=== PATIENT | female | born 1945 | race Two or more races ===

== ENCOUNTER 2019-02-06 08:00 | Inpatient (IN) | payer MEDICARE, MEDICAID ==
[~2019-02-06] VITALS: Ht 160 cm; Wt 94.1 kg
[2019-02-06] MEDS ORDERED: FURO40TA5 PO (08:10)
[2019-02-06] MEDS ORDERED: CARV3.1242 PO (08:10)
[2019-02-06] MEDS ORDERED: LOSA50TA20 PO (08:10)
[2019-02-06] MEDS ORDERED: ESCI10TA54 PO (08:10)
[2019-02-06] MEDS ORDERED: OMEP20CA10 PO (08:10)
[2019-02-06] MEDS ORDERED: GLIP5TAB12 PO (08:10)
[2019-02-06] MEDS ORDERED: SODIUM CHLORIDE 0.9% 1,000 ML IV ONE (08:19)
[2019-02-06] MEDS ORDERED: ONDANSETRON HCL 4MG/2ML INJ IV STA (08:19)
[2019-02-06 08:54] LABS: BASOPHILS % 0.7 % (0.0-2.0); EOSINOPHILS % 2.8 % (0.0-5.0); HEMATOCRIT. 33.7 % (36.0-48.0); HEMOGLOBIN. 9.9 g/dL (12.0-16.0); LYMPHOCYTES % 18.2 % (20.0-50.0); MEAN CORPUSCULAR HEMOGLOBIN 20.2 pg (28.0-32.0); MEAN CORPUSCULAR VOLUME 68.5 fL (81.0-99.0); MEAN PLATELET VOLUME 9.1 fl (7.4-10.4); MONOCYTES % 7.2 % (2.0-8.0); NEUTROPHILS % 71.1 % (40.0-76.0); PLATELET 219 x1000/uL (130-400); RED BLOOD CELL COUNT 4.92 mill/uL (4.2-5.4); RED CELL DISTRIBUTION WIDTH 20.9 % (11.6-14.6)
[2019-02-06 08:57] LABS: CHLORIDE 110 mEq/L (98-107)
[2019-02-06 09:14] LABS: INR 1.2; PROTHROMBIN TIME 12.6 sec (9.6-11.0)
[2019-02-06 09:17] LABS: PLATELET ESTIMATE NORMAL
[2019-02-06 11:36] LABS: CLARITY URINE CLEAR (CLEAR); COLOR URINE DARK YELLOW (YELLOW); KETONES URINE NEGATIVE (NEGATIVE); LEUKOCYTE ESTERASE URINE NEGATIVE (NEGATIVE); NITRITE URINE NEGATIVE (NEGATIVE); OCCULT BLOOD URINE NEGATIVE (NEGATIVE); PROTEIN URINE 1+ (NEGATIVE); SPECIFIC GRAVITY URINE 1.013 (1.005-1.030)
[2019-02-06 11:55] LABS: BG BASE EXCESS -3.4 mmol/L (-2.0-2.0); BG DEOXYHEMOGLOBIN 4.2 % (0.0-5.0); BG FRACTION INSPIRED OXYGEN 28; BG HCO3 ACT 22.5 mmol/L (22.0-26.0); BG METHEMOGLOBIN 0.7 % (0.0-1.5); BG OXYGEN SATURATION 95.7 % (92.0-98.5); BG OXYHEMOGLOBIN 94.1 % (94.0-97.0); BG PCO2 44.4 mmHg (35.0-45.0); BG PH 7.323 (7.350-7.450); BG PO2 93.5 mmHg (75.0-100.0); BG SAMPLE SITE RIGHT RADIAL; BG TOTAL HEMOGLOBIN 10.3 g/dL (12.0-18.0); BG VENT MODE NASAL CANNULA
[2019-02-06] MEDS ORDERED: ENALAPRIL 2.5MG/2ML VIAL 2ML IV ONE (12:00)
[2019-02-06] MEDS ORDERED: FUROSEMIDE 40MG/4ML VIAL IVP ONE (12:00)
[2019-02-06] MEDS ORDERED: ASPIRIN 325MG EC TABLET PO ONE ×2 (13:15→13:45)
[2019-02-06] MEDS ORDERED: ENOXAPARIN 80MG/0.8ML SYR SUBCUT ONE (13:15)
[2019-02-06] MEDS ORDERED: NITROGLYCERIN OINT 1GM/INCH UDPKT TD SCH (14:00)
[2019-02-06] MEDS ORDERED: NITROGLYCERIN OINT 1GM/INCH UDPKT TD NR (14:30)
[2019-02-06] MEDS ORDERED: DIPHENHYDRAMINE 50MG/ML VIAL IV PRN (15:00)
[2019-02-06] MEDS ORDERED: MAGNESIUM/ALUMINUM HYDROXIDE/SIMETHICONE 30ML UDC PO PRN (15:00)
[2019-02-06] MEDS ORDERED: ACETAMINOPHEN 325MG TABLET PO PRN (15:00)
[2019-02-06] MEDS ORDERED: GUAIFENESIN 200MG/10ML SUGAR FREE UDC PO PRN (15:00)
[2019-02-06] MEDS ORDERED: IPRATROPIUM/ALBUTEROL 0.5-3(2.5)MG/3ML NEB INH PRN (15:00)
[2019-02-06] MEDS ORDERED: DOCUSATE SODIUM 100MG CAPSULE PO PRN (15:00)
[2019-02-06] MEDS ORDERED: CLONIDINE 0.1MG TABLET PO PRN (15:00)
[2019-02-06 15:16] LABS: PHOSPHORUS 5.5 mg/dL (2.5-4.9)
[2019-02-06 17:37] VITALS: BP 141/68
[2019-02-06] MEDS ORDERED: MORPHINE SULFATE 4 MG/ML CPJ (NOT FOR IM USE) IV PRN (17:44)
[2019-02-06] MEDS: NITROGLYCERIN OINT 1GM/INCH UDPKT TD SCH (18:44)
[2019-02-06] MEDS ORDERED: DEXTROSE 50% WATER 50ML SYRINGE IV PRN (19:45)
[2019-02-06 20:00] VITALS: BP 129/53
[2019-02-06] MEDS: INSULIN LISPRO 100 UNITS/ML SUBCUT SCH (20:48)
[2019-02-06] MEDS: BLOOD SUGAR DIAGNOSTIC STRIP TEST SCH (20:48)
[2019-02-06] MEDS ORDERED: FUROSEMIDE 40MG/4ML VIAL IVP SCH (21:00)
[2019-02-06] MEDS: ATORVASTATIN CALCIUM 10MG TABLET PO SCH (21:00)
[2019-02-06] MEDS: ONDANSETRON HCL 4MG/2ML INJ IV PRN (21:42)
[2019-02-06 22:00] VITALS: BP 144/70
[2019-02-06] MEDS: FUROSEMIDE 40MG/4ML VIAL IVP SCH (22:07)
[2019-02-07] VITALS (12 sets, daily range): BP systolic 125–152; BP diastolic 55–75
[2019-02-07] MEDS: NITROGLYCERIN OINT 1GM/INCH UDPKT TD SCH ×4 (00:07→17:30)
[2019-02-07] MEDS ORDERED: ENOXAPARIN 80MG/0.8ML SYR SUBCUT SCH (01:00)
[2019-02-07] MEDS: ONDANSETRON HCL 4MG/2ML INJ IV PRN (03:50)
[2019-02-07] MEDS: FUROSEMIDE 40MG/4ML VIAL IVP SCH ×3 (05:34→16:44)
[2019-02-07 06:19] LABS: BASOPHILS % 0.2 % (0.0-2.0); HEMATOCRIT. 30.1 % (36.0-48.0); LYMPHOCYTES % 11.9 % (20.0-50.0); MEAN CORPUSCULAR HEMOGLOBIN 20.3 pg (28.0-32.0); MEAN CORPUSCULAR VOLUME 67.5 fL (81.0-99.0); MONOCYTES % 10.9 % (2.0-8.0); PLATELET 202 x1000/uL (130-400); RED BLOOD CELL COUNT 4.45 mill/uL (4.2-5.4); RED CELL DISTRIBUTION WIDTH 21.4 % (11.6-14.6)
[2019-02-07 06:37] LABS: CHLORIDE 110 mEq/L (98-107)
[2019-02-07 06:49] LABS: LDL CHOLESTEROL 34 mg/dL (5-100)
[2019-02-07 06:50] LABS: CREATINE KINASE 46 IU/L (26-192)
[2019-02-07 06:51] LABS: HDL CHOLESTEROL 39 mg/dL (40-59)
[2019-02-07 06:53] LABS: CREATINE KINASE MB FRACTION 1.5 ng/mL (0.5-3.6)
[2019-02-07] MEDS: INSULIN LISPRO 100 UNITS/ML SUBCUT SCH ×4 (07:20→21:00)
[2019-02-07] MEDS: BLOOD SUGAR DIAGNOSTIC STRIP TEST SCH ×4 (07:49→21:12)
[2019-02-07] MEDS: ASPIRIN 81MG EC TABLET PO SCH (09:47)
[2019-02-07] MEDS: POTASSIUM CHLORIDE 10MEQ TABLET SR PO SCH (09:47)
[2019-02-07] MEDS: LOSARTAN POTASSIUM 25 MG TABLET PO SCH (09:47)
[2019-02-07] MEDS ORDERED: NON FORMULARY PATIENT HOME MED XX SCH (11:00)
[2019-02-07] MEDS ORDERED: CITALOPRAM HYDROBROMIDE 10MG TABLET PO SCH (12:00)
[2019-02-07] MEDS ORDERED: CITALOPRAM HYDROBROMIDE 20MG TABLET PO SCH (12:00)
[2019-02-07] MEDS ORDERED: ENOXAPARIN 100MG/ML SYR SUBCUT NR (14:00)
[2019-02-07] MEDS: ESCITALOPRAM 10MG TABLET PO SCH (14:24)
[2019-02-07] MEDS: CARVEDILOL 6.25 MG TABLET PO SCH (21:36)
[2019-02-07] MEDS: ATORVASTATIN CALCIUM 10MG TABLET PO SCH (21:36)
[2019-02-08] VITALS (12 sets, daily range): BP systolic 111–151; BP diastolic 51–83
[2019-02-08] MEDS: NITROGLYCERIN OINT 1GM/INCH UDPKT TD SCH ×2 (00:25→05:52)
[2019-02-08] MEDS: BLOOD SUGAR DIAGNOSTIC STRIP TEST SCH ×4 (06:45→21:09)
[2019-02-08 07:07] LABS: CHLORIDE 109 mEq/L (98-107)
[2019-02-08 07:08] LABS: BASOPHILS % 0.4 % (0.0-2.0); EOSINOPHILS % 4.2 % (0.0-5.0); HEMATOCRIT. 29.9 % (36.0-48.0); HEMOGLOBIN. 8.8 g/dL (12.0-16.0); LYMPHOCYTES % 20.1 % (20.0-50.0); MEAN CORPUSCULAR HEMOGLOBIN 19.8 pg (28.0-32.0); MEAN CORPUSCULAR VOLUME 67.4 fL (81.0-99.0); MEAN PLATELET VOLUME 8.9 fl (7.4-10.4); MONOCYTES % 12.7 % (2.0-8.0); NEUTROPHILS % 62.6 % (40.0-76.0); PLATELET 194 x1000/uL (130-400); RED BLOOD CELL COUNT 4.43 mill/uL (4.2-5.4); RED CELL DISTRIBUTION WIDTH 20.6 % (11.6-14.6)
[2019-02-08 07:17] LABS: TOTAL IRON BINDING CAPACITY 404 ug/dL (250-450)
[2019-02-08] MEDS: INSULIN LISPRO 100 UNITS/ML SUBCUT SCH ×4 (07:20→21:24)
[2019-02-08] MEDS: LOSARTAN POTASSIUM 25 MG TABLET PO SCH (08:13)
[2019-02-08] MEDS: FUROSEMIDE 40MG/4ML VIAL IVP SCH ×2 (08:14→16:10)
[2019-02-08] MEDS: POTASSIUM CHLORIDE 10MEQ TABLET SR PO SCH (08:14)
[2019-02-08] MEDS: ESCITALOPRAM 10MG TABLET PO SCH (08:14)
[2019-02-08] MEDS: CARVEDILOL 6.25 MG TABLET PO SCH ×2 (08:14→21:26)
[2019-02-08] MEDS: ASPIRIN 81MG EC TABLET PO SCH (08:14)
[2019-02-08] MEDS: ENOXAPARIN 30MG/0.3ML SYR SUBCUT SCH ×2 (09:52→21:23)
[2019-02-08] MEDS: POTASSIUM CHLORIDE 20MEQ TABLET SR PO SCH (09:52)
[2019-02-08] MEDS: ATORVASTATIN CALCIUM 10MG TABLET PO SCH (21:23)
[2019-02-09] VITALS (9 sets, daily range): BP systolic 115–129; BP diastolic 49–69
[2019-02-09] MEDS: BLOOD SUGAR DIAGNOSTIC STRIP TEST SCH ×2 (06:18→11:52)
[2019-02-09] MEDS: INSULIN LISPRO 100 UNITS/ML SUBCUT SCH ×2 (07:11→11:53)
[2019-02-09] MEDS: FUROSEMIDE 40MG/4ML VIAL IVP SCH (08:34)
[2019-02-09] MEDS: ENOXAPARIN 30MG/0.3ML SYR SUBCUT SCH (08:34)
[2019-02-09] MEDS: ASPIRIN 81MG EC TABLET PO SCH (08:34)
[2019-02-09] MEDS: POTASSIUM CHLORIDE 20MEQ TABLET SR PO SCH (08:34)
[2019-02-09] MEDS: CARVEDILOL 6.25 MG TABLET PO SCH (08:34)
[2019-02-09] MEDS: ESCITALOPRAM 10MG TABLET PO SCH (08:37)
[2019-02-09] MEDS ORDERED: LOSARTAN POTASSIUM 50 MG TABLET PO SCH (09:00)
[2019-02-09 10:46] LABS: BASOPHILS % 0.7 % (0.0-2.0); EOSINOPHILS % 6.6 % (0.0-5.0); HEMOGLOBIN. 9.1 g/dL (12.0-16.0); LYMPHOCYTES % 20.1 % (20.0-50.0); MEAN CORPUSCULAR HEMOGLOBIN 19.8 pg (28.0-32.0); MEAN CORPUSCULAR VOLUME 67.9 fL (81.0-99.0); MEAN PLATELET VOLUME 8.8 fl (7.4-10.4); MONOCYTES % 11.8 % (2.0-8.0); NEUTROPHILS % 60.8 % (40.0-76.0); PLATELET 196 x1000/uL (130-400); RED BLOOD CELL COUNT 4.57 mill/uL (4.2-5.4); RED CELL DISTRIBUTION WIDTH 20.6 % (11.6-14.6)
[2019-02-09 11:00] LABS: CHLORIDE 105 mEq/L (98-107)
[2019-02-09] MEDS ORDERED: FERROUS SULFATE 325MG TABLET PO SCH (11:00)
== END 2019-02-09 14:00 | disposition home or self-care (01) | DRG 280 ==
LOC: ER 08:00 → 3WST 13:14 → EDBEDREQSVC 13:16 → EDBEDREQ 13:16 → ENRESERV 15:41 → EDBEDREQSVC 15:42
PROVIDERS: ADMIT Internal Medicine; ATTEND Internal Medicine
PROC: 4A10X4Z Monitoring of Central Nervous Electrical Activity, External Approach (ICD-10-PCS; principal; 2019-02-09)
DX: I21.3 ST elevation (STEMI) myocardial infarction of unspecified site (principal); I50.23 Acute on chronic systolic (congestive) heart failure; G92 Toxic encephalopathy; E87.2 Acidosis; I42.0 Dilated cardiomyopathy; R18.8 Other ascites; I08.1 Rheumatic disorders of both mitral and tricuspid valves; I11.0 Hypertensive heart disease with heart failure; I27.20 Pulmonary hypertension, unspecified; R09.02 Hypoxemia; D64.9 Anemia, unspecified; E11.9 Type 2 diabetes mellitus without complications; G90.8 Other disorders of autonomic nervous system; R41.0 Disorientation, unspecified; E66.01 Morbid (severe) obesity due to excess calories; E78.5 Hyperlipidemia, unspecified; K21.9 Gastro-esophageal reflux disease without esophagitis; M48.00 Spinal stenosis, site unspecified; Z79.4 Long term (current) use of insulin; Z79.82 Long term (current) use of aspirin; Z79.899 Other long term (current) drug therapy; Z90.49 Acquired absence of other specified parts of digestive tract; Z90.710 Acquired absence of both cervix and uterus; Z98.891 History of uterine scar from previous surgery; Z68.36 Body mass index [BMI] 36.0-36.9, adult
CPT/HCPCS: 36415; 36600; 71045; 74176; 80048; 80061; 82140; 82375; 82550; 82553; 82728; 82805; 82962; 83036; 83540; 83550; 83735; 83880; 84100; 84443; 84484; 93005; 93306; 96374; 96375; 97162; 97165; 99291; J1650; J1815; J1940; J2405; J3490; J7030

== ENCOUNTER 2019-04-30 11:24 | Inpatient (IN) | payer MEDICARE, MEDICAID ==
[~2019-04-30] VITALS: Ht 157.5 cm; Wt 82.1 kg
[~2019-04-30 11:24] MED LIST: CARV3.1242 PO; ESCI10TA54 PO; FURO40TA5 PO; GLIP5TAB12 PO; LOSA50TA41 PO; OMEP20CA5 PO
[2019-04-30] MEDS ORDERED: CEFTRIAXONE 1 G PREMIX 50 ML IV ONE (12:00)
[2019-04-30] MEDS ORDERED: SODIUM CHLORIDE 0.9% 1000ML BAG (SEPSIS BOLUS) IV ONE (12:00)
[2019-04-30 12:24] LABS: BASOPHILS % 0.5 % (0.0-2.0); EOSINOPHILS % 1.3 % (0.0-5.0); LYMPHOCYTES % 7.6 % (20.0-50.0); MEAN CORPUSCULAR HEMOGLOBIN 26.9 pg (28.0-32.0); MEAN CORPUSCULAR VOLUME 83.2 fL (81.0-99.0); MEAN PLATELET VOLUME 7.6 fl (7.4-10.4); MONOCYTES % 4.4 % (2.0-8.0); NEUTROPHILS % 86.2 % (40.0-76.0); PLATELET 332 x1000/uL (130-400); RED BLOOD CELL COUNT 1.71 mill/uL (4.2-5.4); RED CELL DISTRIBUTION WIDTH 22.2 % (11.6-14.6)
[2019-04-30 12:34] LABS: CHLORIDE 100 mEq/L (98-107)
[2019-04-30 12:35] LABS: HEMATOCRIT. 14.2 % (36.0-48.0); HEMOGLOBIN. 4.6 g/dL (12.0-16.0)
[2019-04-30] MEDS ORDERED: INSULIN REGULAR (HUMULIN R) 300UNITS/3ML IV ONE (12:45)
[2019-04-30] MEDS ORDERED: SODIUM BICARBONATE 8.4% 1 MEQ/ML 50ML SYR IV ONE (12:45)
[2019-04-30] MEDS ORDERED: DEXTROSE 50% WATER 50ML SYRINGE IV ONE ×2 (12:45)
[2019-04-30 12:49] LABS: PROTHROMBIN TIME 10.3 sec (9.6-11.0)
[2019-04-30 12:53] LABS: PLATELET ESTIMATE NORMAL
[2019-04-30 13:03] LABS: PHOSPHORUS 7.1 mg/dL (2.5-4.9)
[2019-04-30] MEDS ORDERED: MORPHINE SULFATE 4 MG/ML CPJ (NOT FOR IM USE) IV ONE (13:45)
[2019-04-30] MEDS ORDERED: ONDANSETRON HCL 4MG/2ML INJ IV ONE (13:45)
[2019-04-30] MEDS: ALBUTEROL (0.083%) 2.5MG/3ML NEB HHN SCH ×3 (13:52→15:00)
[2019-04-30] MEDS ORDERED: ALBUTEROL (0.5%) 2.5MG/0.5ML NEB HHN ONE (14:23)
[2019-04-30] MEDS ORDERED: CLONIDINE 0.1MG TABLET PO PRN (15:30)
[2019-04-30] MEDS ORDERED: DIPHENHYDRAMINE 50MG/ML VIAL IV PRN (15:30)
[2019-04-30] MEDS ORDERED: ACETAMINOPHEN 325MG TABLET PO PRN (15:30)
[2019-04-30] MEDS ORDERED: MAGNESIUM/ALUMINUM HYDROXIDE/SIMETHICONE 30ML UDC PO PRN (15:30)
[2019-04-30] MEDS ORDERED: DOCUSATE SODIUM 100MG CAPSULE PO PRN (15:30)
[2019-04-30] MEDS ORDERED: GUAIFENESIN 200MG/10ML SUGAR FREE UDC PO PRN (15:30)
[2019-04-30] MEDS ORDERED: CALCIUM GLUCONATE 1,000 MG in DEXT 5% WATER 100 ML IV NR (16:00)
[2019-04-30] MEDS ORDERED: SODIUM CHLORIDE 0.9% 1,000 ML IV SCH (16:30)
[2019-04-30 16:46] LABS: BG BASE EXCESS -7.3 mmol/L (-2.0-2.0); BG DEOXYHEMOGLOBIN 5.1 % (0.0-5.0); BG FRACTION INSPIRED OXYGEN 21; BG HCO3 ACT 18.1 mmol/L (22.0-26.0); BG METHEMOGLOBIN 0.1 % (0.0-1.5); BG OXYGEN SATURATION 94.8 % (92.0-98.5); BG OXYHEMOGLOBIN 93.8 % (94.0-97.0); BG PCO2 35.9 mmHg (35.0-45.0); BG PH 7.321 (7.350-7.450); BG PO2 80.5 mmHg (75.0-100.0); BG SAMPLE SITE RIGHT BRACHIAL; BG TOTAL HEMOGLOBIN 5.6 g/dL (12.0-18.0); BG VENT MODE ROOM AIR
[2019-04-30] MEDS ORDERED: CARVEDILOL 3.125 MG TABLET PO SCH ×2 (17:00→20:00)
[2019-04-30 17:30] LABS: CLARITY URINE CLEAR (CLEAR); COLOR URINE YELLOW (YELLOW); KETONES URINE NEGATIVE (NEGATIVE); LEUKOCYTE ESTERASE URINE 2+ (NEGATIVE); NITRITE URINE NEGATIVE (NEGATIVE); OCCULT BLOOD URINE NEGATIVE (NEGATIVE); PROTEIN URINE NEGATIVE (NEGATIVE); SPECIFIC GRAVITY URINE 1.012 (1.005-1.030); UROBILINOGEN URINE 0.2 E.U./dL (0.2-1.0)
[2019-04-30] MEDS ORDERED: SODIUM POLYSTYRENE SULFONATE 15 G/60 ML BOT PO NR ×2 (17:30→20:15)
[2019-04-30 20:47] LABS: PHOSPHORUS 5.1 mg/dL (2.5-4.9)
[2019-04-30 21:07] LABS: FERRITIN 39 ng/mL (10-291)
[2019-04-30 21:34] LABS: FOLIC ACID (FOLATE) SERUM >20 ng/mL ng/mL (>5.38)
[2019-04-30 21:46] LABS: VITAMIN B12 SERUM >2000 pg/mL pg/mL (211-911)
[2019-04-30 22:15] VITALS: BP 116/50
[2019-04-30 22:30] VITALS: BP 116/50
[2019-05-01] VITALS (9 sets, daily range): BP systolic 101–156; BP diastolic 32–59
[2019-05-01] MEDS: HYDROCODONE/ACETAMINOPHEN 5/325MG TABLET PO PRN ×2 (01:35→10:31)
[2019-05-01 01:53] LABS: HEMATOCRIT 20.2 % (36.0-48.0); HEMOGLOBIN 6.8 g/dL (12.0-16.0)
[2019-05-01 02:06] LABS: CREATINE KINASE MB FRACTION 2.9 ng/mL (0.5-3.6)
[2019-05-01 09:12] LABS: MEAN CORPUSCULAR HEMOGLOBIN 28.8 pg (28.0-32.0); MEAN CORPUSCULAR VOLUME 85.6 fL (81.0-99.0); MEAN PLATELET VOLUME 7.5 fl (7.4-10.4); PLATELET 294 x1000/uL (130-400); RED BLOOD CELL COUNT 2.35 mill/uL (4.2-5.4); RED CELL DISTRIBUTION WIDTH 19.9 % (11.6-14.6)
[2019-05-01] MEDS ORDERED: CITRIC ACID/SODIUM CITRATE SOLN 30ML UDC PO SCH (09:15)
[2019-05-01 09:18] LABS: BASOPHILS % 0.3 % (0.0-2.0); HEMATOCRIT. 20.1 % (36.0-48.0); HEMOGLOBIN. 6.8 g/dL (12.0-16.0); LYMPHOCYTES % 7.3 % (20.0-50.0); MONOCYTES % 7.5 % (2.0-8.0); NEUTROPHILS % 80.9 % (40.0-76.0)
[2019-05-01 09:22] LABS: CHLORIDE 116 mEq/L (98-107)
[2019-05-01 09:29] LABS: HDL CHOLESTEROL 32 mg/dL (40-59); PHOSPHORUS 3.6 mg/dL (2.5-4.9)
[2019-05-01 09:30] LABS: AMYLASE 97 IU/L (25-115)
[2019-05-01 09:31] LABS: LDL CHOLESTEROL 55 mg/dL (5-100)
[2019-05-01 09:33] LABS: HAPTOGLOBIN 212 mg/dL (30-200)
[2019-05-01 09:34] LABS: CREATINE KINASE 63 IU/L (26-192); CREATINE KINASE MB FRACTION 1.9 ng/mL (0.5-3.6)
[2019-05-01] MEDS ORDERED: DEXTROSE 50% WATER 50ML SYRINGE IV PRN (09:45)
[2019-05-01] MEDS ORDERED: DEXTROSE 50% WATER 50ML SYRINGE IV NR (10:30)
[2019-05-01] MEDS: CARVEDILOL 3.125 MG TABLET PO SCH ×2 (10:32→23:32)
[2019-05-01] MEDS: ONDANSETRON HCL 4MG/2ML INJ IV PRN ×2 (10:32→18:27)
[2019-05-01] MEDS: BLOOD SUGAR DIAGNOSTIC STRIP TEST SCH ×3 (12:10→21:00)
[2019-05-01] MEDS: INSULIN LISPRO 100 UNITS/ML SUBCUT SCH ×3 (12:40→23:38)
[2019-05-01] MEDS ORDERED: INSULIN REGULAR (HUMULIN R) UD 100 UNITS/ML SYR IV NR (13:00)
[2019-05-01] MEDS ORDERED: SODIUM POLYSTYRENE SULFONATE 15 G/60 ML BOT PO NR (13:00)
[2019-05-01] MEDS: SODIUM POLYSTYRENE SULFONATE 15 G/60 ML BOT PO NR ×2 (13:04→17:19)
[2019-05-01] MEDS ORDERED: SORBITOL 70% SOLN 30ML PO ONE ×2 (16:00→20:00)
[2019-05-01 16:13] LABS: HEMATOCRIT 25.7 % (36.0-48.0); HEMOGLOBIN 8.4 g/dL (12.0-16.0)
[2019-05-01 16:25] LABS: PROTHROMBIN TIME 10.5 sec (9.6-11.0)
[2019-05-01 16:29] LABS: T4 FREE 1.09 ng/dL (0.76-1.46)
[2019-05-01] MEDS: CEFEPIME 1,000 MG in DEXTROSE 5% WATER 50 ML IV SCH (17:19)
[2019-05-01] MEDS: SODIUM CHLORIDE 0.45% 1,000 ML IV SCH (22:06)
[2019-05-01] MEDS: CITRIC ACID/SODIUM CITRATE SOLN 30ML UDC PO SCH (23:32)
[2019-05-02] VITALS: BP 121/65
[2019-05-02 01:52] LABS: HEMATOCRIT 26.5 % (36.0-48.0); HEMOGLOBIN 8.7 g/dL (12.0-16.0)
[2019-05-02 02:16] LABS: CHLORIDE 121 mEq/L (98-107)
[2019-05-02 04:00] VITALS: BP 149/65
[2019-05-02] MEDS ORDERED: DICL75TA5 MT (05:56)
[2019-05-02] MEDS ORDERED: ATOR20TA65 PO (05:56)
[2019-05-02] MEDS ORDERED: SPIR25TA6 MT (05:56)
[2019-05-02] MEDS ORDERED: FERR325T6 PO (05:56)
[2019-05-02] MEDS ORDERED: AMIO100T4 PO (05:56)
[2019-05-02] MEDS ORDERED: ASPI-1158 PO (05:56)
[2019-05-02] MEDS: CEFEPIME 1,000 MG in DEXTROSE 5% WATER 50 ML IV SCH ×2 (06:25→17:29)
[2019-05-02] MEDS: ONDANSETRON HCL 4MG/2ML INJ IV PRN (06:47)
[2019-05-02 06:53] LABS: BASOPHILS % 0.2 % (0.0-2.0); EOSINOPHILS % 0.2 % (0.0-5.0); HEMATOCRIT. 25.6 % (36.0-48.0); HEMOGLOBIN. 8.6 g/dL (12.0-16.0); LYMPHOCYTES % 7.8 % (20.0-50.0); MEAN CORPUSCULAR HEMOGLOBIN 28.8 pg (28.0-32.0); MEAN CORPUSCULAR VOLUME 85.9 fL (81.0-99.0); MEAN PLATELET VOLUME 7.3 fl (7.4-10.4); MONOCYTES % 9.5 % (2.0-8.0); NEUTROPHILS % 82.3 % (40.0-76.0); PLATELET 338 x1000/uL (130-400); RED BLOOD CELL COUNT 2.99 mill/uL (4.2-5.4); RED CELL DISTRIBUTION WIDTH 18.8 % (11.6-14.6)
[2019-05-02] MEDS: BLOOD SUGAR DIAGNOSTIC STRIP TEST SCH ×4 (06:57→21:26)
[2019-05-02] MEDS: INSULIN LISPRO 100 UNITS/ML SUBCUT SCH ×4 (07:00→21:52)
[2019-05-02 07:02] LABS: PARTIAL THROMBOPLASTIN TIME 25.8 sec (23.4-31.0); PROTHROMBIN TIME 10.8 sec (9.6-11.0)
[2019-05-02 07:24] LABS: CHLORIDE 121 mEq/L (98-107)
[2019-05-02 07:44] LABS: PHOSPHORUS 2.9 mg/dL (2.5-4.9)
[2019-05-02 08:00] VITALS: BP 129/65
[2019-05-02] MEDS: CITRIC ACID/SODIUM CITRATE SOLN 30ML UDC PO SCH ×2 (08:50→21:45)
[2019-05-02] MEDS: CARVEDILOL 3.125 MG TABLET PO SCH ×2 (08:51→21:46)
[2019-05-02] MEDS: SODIUM CHLORIDE 0.45% 1,000 ML IV SCH (08:52)
[2019-05-02 12:00] VITALS: BP 142/59
[2019-05-02] MEDS: AMIODARONE HCL 200 MG TABLET PO SCH (14:02)
[2019-05-02] MEDS: SPIRONOLACTONE 25MG TABLET PO SCH (14:03)
[2019-05-02] MEDS: LISINOPRIL 5MG TABLET PO SCH (14:03)
[2019-05-02] MEDS ORDERED: MIDAZOLAM HCL 5 MG/5 ML VIAL ONE (15:03)
[2019-05-02] MEDS ORDERED: FENTANYL CITRATE/PF 50MCG/ML 2ML VIAL ONE (15:03)
[2019-05-02 16:00] VITALS: BP 124/43
[2019-05-02] MEDS ORDERED: POTASSIUM CHLORIDE 20MEQ TABLET SR PO NR (16:15)
[2019-05-02] MEDS: SUCRALFATE 1 G/10 ML UDC PO SCH ×2 (17:28→21:40)
[2019-05-02] MEDS: DEXT 5%/0.2% NACL 1,000 ML IV SCH (17:41)
[2019-05-02] MEDS ORDERED: SORBITOL 70% SOLN 30ML PO NR ×2 (18:00→21:15)
[2019-05-02 20:00] VITALS: BP 128/66
[2019-05-02] MEDS: OMEPRAZOLE 20MG CAPSULE EXTENDED RELEASE PO SCH (21:40)
[2019-05-02] MEDS: ATORVASTATIN CALCIUM 20MG TABLET PO SCH (21:40)
[2019-05-02 21:45] LABS: HEMATOCRIT 28.7 % (36.0-48.0); HEMOGLOBIN 9.5 g/dL (12.0-16.0)
[2019-05-03] VITALS (7 sets, daily range): BP systolic 113–148; BP diastolic 49–69
[2019-05-03] MEDS: CEFEPIME 1,000 MG in DEXTROSE 5% WATER 50 ML IV SCH (05:37)
[2019-05-03] MEDS: INSULIN LISPRO 100 UNITS/ML SUBCUT SCH ×4 (06:50→21:30)
[2019-05-03] MEDS: SUCRALFATE 1 G/10 ML UDC PO SCH ×5 (06:50→21:26)
[2019-05-03] MEDS: OMEPRAZOLE 20MG CAPSULE EXTENDED RELEASE PO SCH ×2 (06:50→21:24)
[2019-05-03] MEDS: BLOOD SUGAR DIAGNOSTIC STRIP TEST SCH ×4 (06:50→21:33)
[2019-05-03 07:56] LABS: BASOPHILS % 0.4 % (0.0-2.0); EOSINOPHILS % 1.3 % (0.0-5.0); HEMATOCRIT. 27.4 % (36.0-48.0); LYMPHOCYTES % 13.5 % (20.0-50.0); MEAN CORPUSCULAR HEMOGLOBIN 28.4 pg (28.0-32.0); MEAN CORPUSCULAR VOLUME 86.9 fL (81.0-99.0); MEAN PLATELET VOLUME 7.3 fl (7.4-10.4); MONOCYTES % 10.1 % (2.0-8.0); NEUTROPHILS % 74.7 % (40.0-76.0); PLATELET 354 x1000/uL (130-400); RED BLOOD CELL COUNT 3.16 mill/uL (4.2-5.4); RED CELL DISTRIBUTION WIDTH 19.4 % (11.6-14.6)
[2019-05-03 07:58] LABS: CHLORIDE 120 mEq/L (98-107)
[2019-05-03 08:05] LABS: PHOSPHORUS 2.1 mg/dL (2.5-4.9)
[2019-05-03] MEDS: CITRIC ACID/SODIUM CITRATE SOLN 30ML UDC PO SCH ×2 (09:00→21:25)
[2019-05-03] MEDS: CARVEDILOL 3.125 MG TABLET PO SCH ×2 (09:00→21:25)
[2019-05-03] MEDS: DEXT 5%/0.2% NACL 1,000 ML IV SCH (10:36)
[2019-05-03] MEDS: MEROPENEM 1,000 MG in SODIUM CHLORIDE 0.9% 100 ML IV SCH ×2 (13:17→21:00)
[2019-05-03] MEDS ORDERED: POTASSIUM PHOS,M-BASIC-D-BASIC 15 MMOL in DEXT 5% WATER 245 ML IV ONE (14:00)
[2019-05-03] MEDS ORDERED: FENTANYL CITRATE/PF 50MCG/ML 2ML VIAL IV PRN (14:25)
[2019-05-03] MEDS ORDERED: FENTANYL CITRATE/PF 50MCG/ML 2ML VIAL ONE (14:25)
[2019-05-03] MEDS ORDERED: MIDAZOLAM HCL 5 MG/5 ML VIAL ONE ×2 (14:25→14:57)
[2019-05-03] MEDS ORDERED: MIDAZOLAM HCL 5 MG/5 ML VIAL IV PRN (14:26)
[2019-05-03] MEDS: AMIODARONE HCL 200 MG TABLET PO SCH (17:48)
[2019-05-03] MEDS: LISINOPRIL 5MG TABLET PO SCH (17:48)
[2019-05-03] MEDS: SPIRONOLACTONE 25MG TABLET PO SCH (17:51)
[2019-05-03] MEDS: ATORVASTATIN CALCIUM 20MG TABLET PO SCH (21:25)
[2019-05-04] VITALS: BP 129/66
== END 2019-05-04 01:05 | DRG 871 ==
LOC: ER 11:24 → 8WST 13:42 → EDBEDREQ 13:46 → ENRESERV 21:11
PROVIDERS: ADMIT Internal Medicine; ATTEND Internal Medicine
PROC: 30233N1 Transfusion of Nonautologous Red Blood Cells into Peripheral Vein, Percutaneous Approach (ICD-10-PCS; principal; 2019-04-30)
PROC: 0DB78ZX Excision of Stomach, Pylorus, Via Natural or Artificial Opening Endoscopic, Diagnostic (ICD-10-PCS; 2019-05-02)
PROC: 0D598ZZ Destruction of Duodenum, Via Natural or Artificial Opening Endoscopic (ICD-10-PCS; 2019-05-02)
PROC: 0DJD8ZZ Inspection of Lower Intestinal Tract, Via Natural or Artificial Opening Endoscopic (ICD-10-PCS; 2019-05-02)
DX: A41.9 Sepsis, unspecified organism (principal); K85.90 Acute pancreatitis without necrosis or infection, unspecified; K29.01 Acute gastritis with bleeding; K26.4 Chronic or unspecified duodenal ulcer with hemorrhage; K31.811 Angiodysplasia of stomach and duodenum with bleeding; E44.0 Moderate protein-calorie malnutrition; E87.1 Hypo-osmolality and hyponatremia; E87.2 Acidosis; N17.9 Acute kidney failure, unspecified; N39.0 Urinary tract infection, site not specified; E87.0 Hyperosmolality and hypernatremia; I42.9 Cardiomyopathy, unspecified; Q27.30 Arteriovenous malformation, site unspecified; D64.9 Anemia, unspecified; E83.39 Other disorders of phosphorus metabolism; E83.41 Hypermagnesemia; I50.9 Heart failure, unspecified; E87.5 Hyperkalemia; I27.20 Pulmonary hypertension, unspecified; E78.00 Pure hypercholesterolemia, unspecified; E78.5 Hyperlipidemia, unspecified; I25.10 Atherosclerotic heart disease of native coronary artery without angina pectoris; K21.9 Gastro-esophageal reflux disease without esophagitis; E11.9 Type 2 diabetes mellitus without complications; I11.0 Hypertensive heart disease with heart failure; I25.5 Ischemic cardiomyopathy; L89.320 Pressure ulcer of left buttock, unstageable; L89.310 Pressure ulcer of right buttock, unstageable; K76.0 Fatty (change of) liver, not elsewhere classified; Z16.12 Extended spectrum beta lactamase (ESBL) resistance; Z79.899 Other long term (current) drug therapy; Z82.49 Family history of ischemic heart disease and other diseases of the circulatory system; Z83.3 Family history of diabetes mellitus; Z95.0 Presence of cardiac pacemaker; Z79.84 Long term (current) use of oral hypoglycemic drugs; Z90.49 Acquired absence of other specified parts of digestive tract; Z90.710 Acquired absence of both cervix and uterus; Z98.891 History of uterine scar from previous surgery; I25.2 Old myocardial infarction; Z87.440 Personal history of urinary (tract) infections
CPT/HCPCS: 36415; 36600; 71045; 74176; 76700; 80048; 80051; 80061; 82150; 82270; 82375; 82550; 82553; 82607; 82728; 82746; 82805; 82962; 83010; 83540; 83550; 83605; 83735; 83935; 84100; 84134; 84145; 84439; 84443; 84481; 84484; 84550; 85014; 85018; 85044; 85384; 86677; 86850; 86900; 86920; 87077; 87186; 88305; 88312; 88313; 93005; 93970; 96374; 96375; 97162; 97166; 99152; 99153; 99291; J0610; J0692; J1815; J2185; J2250; J2270; J2405; J3010; J3490; J7030; J7040; J7050; J7060; J7611; P9016; A4315; G0500